=== PATIENT | female | born 1980 | race Caucasian/White ===

== ENCOUNTER → 2017-04-13 | Outpatient (CLI) | payer MEDICAID ==
[~2017-04-13] MED LIST: FLEXERIL10 MG PO; LODINE200 MG PO
[2017-04-13 11:27] LABS: HEMOGLOBIN 13.8 g/dL (12.2-16.2); LYMPH # 2.3 K/mm3 (0.7-4.5); LYMPH % 43.3 % (10-50.0)
[2017-04-13 13:03] LABS: BUN 13 mg/dL (7-18)
[2017-04-13 13:10] LABS: GFR (ESTIMATED) 70 ML/MIN (59-)
== END ==
LOC: LAB 11:07
PROVIDERS: Family Medicine
DX: F98.8 Other specified behavioral and emotional disorders with onset usually occurring in childhood and adolescence (principal); Z13.29 Encounter for screening for other suspected endocrine disorder